=== PATIENT | female | born 1995 | race Caucasian/White ===

== ENCOUNTER → 2016-06-17 | Emergency (ER) | payer OTHER, MEDICAID | LOC: ER 15:17 | DX: S39.012A Strain of muscle, fascia and tendon of lower back, initial encounter (principal); V49.49XA Driver injured in collision with other motor vehicles in traffic accident, initial encounter; Z33.1 Pregnant state, incidental | CPT/HCPCS: 36415; 72100; 72170; 80053; 85025; 85460; 86901 ==